=== PATIENT | male | born 1995 | race Asian ===

== ENCOUNTER 2017-04-02 18:58 | Emergency (ER) | payer SELFPAY ==
[2017-04-02 19:06] VITALS: BP 111/70
--- NOTE | 2017-04-02 19:14 | UC ---
Laceration HPI - HPI Summary HPI Summary: 22 y/o male presents to the urgent care c/o laceration to his LF pinky finger s/ p cutting meat with a knife at 1600pm. Pt states bleeding stopped and pain is 2/ 10. He can move his finger. He feels mild numbness at the tip of his pinky finger. Pt denies fever, SOB, cheat pain, N/V/D. Pt states his last Tetanus shot was 2 weeks ago. - History Of Current Complaint Chief Complaint: UCLaceration Stated Complaint: FINGER LAC Time Seen by Provider: 04/02/17 19:11 Hx Obtained From: Patient Laceration Location: Finger - LF #5 phalanx with laceration at its base Mechanism Of Injury: Sharp Trauma Onset/Duration: Sudden Onset, Lasting Hours, Still Present Severity: Moderate Pain Intensity: 2 Pain Scale Used: 0-10 Numeric Aggravating Factors: Other: - touch Related History: Dominant Hand Right - Allergies/Home Medications Allergies/Adverse Reactions: Allergies Allergy/AdvReac Type Severity Reaction Status Date / Time No Known Allergies Allergy Verified 04/02/17 19:05 PMH/Surg Hx/FS Hx/Imm Hx Previously Healthy: Yes - Surgical History Surgical History: None - Family History Known Family History: Positive: None Family History: Pt denies FMHX - Social History Occupation: Student Lives: Alone Alcohol Use: None Substance Use Type: None Smoking Status (MU): Never Smoked Tobacco Review of Systems Constitutional: Negative Skin: Other - Laceration at the base of LF #5th phalanx s/p cut with a knife Eyes: Negative ENT: Negative Respiratory: Negative Cardiovascular: Negative Gastrointestinal: Negative Genitourinary: Negative Motor: Negative Neurovascular: Negative Musculoskeletal: Negative Neurological: Negative Psychological: Negative All Other Systems Reviewed And Are Negative: Yes Physical Exam Triage Information Reviewed: Yes Appearance: Well-Appearing, No Pain Distress, Well-Nourished, Thin Vital Signs: Initial Vital Signs Temp 98.9 F 04/02/17 19:00 Pulse 62 04/02/17 19:00 Resp 16 04/02/17 19:00 BP 111/70 04/02/17 19:00 Pulse Ox 99 04/02/17 19:00 Vital Signs Reviewed: Yes Eye Exam: Normal Eyes: Positive: Conjunctiva Clear - PERRLA ,EOMI ENT Exam: Normal ENT: Positive: Normal ENT inspection, Hearing grossly normal, Pharynx normal, TMs normal Dental Exam: Normal Neck exam: Normal Neck: Positive: Supple, Nontender, No Lymphadenopathy Respiratory Exam: Normal Respiratory: Positive: Chest non-tender, Lungs clear, Normal breath sounds Cardiovascular Exam: Normal Cardiovascular: Positive: RRR, No Murmur, Pulses Normal, Brisk Capillary Refill Abdominal Exam: Normal Abdomen Description: Positive: Nontender, No Organomegaly, Soft. Negative: CVA Tenderness (R), CVA Tenderness (L) Bowel Sounds: Positive: Present Musculoskeletal Exam: Normal Musculoskeletal: Positive: Strength Intact, ROM Intact, No Edema Neurological Exam: Normal Neurological: Positive: Alert Psychological Exam: Normal Skin: Positive: significant lesion(s) - Base of LF #5 phalanx with a irregular superficial laceration, semilunar in shape about 2cm in size. tender to palaption , FROM of phalanx, mild numbness over the tip of phalanx. capillary refill brisk, pulses ans reflexes WNL. Laceration Repair - Laceration Repair 1 Description: Irregular - semilunar shape at the base of the LF #5 phalanx Laceration Size After Repair: Length (cm) - 2cm in size Modified For Repair: No Type Injection: Local Anesthesia Used: 2.0% Lido - 4 ml used Cleansing Completed Via Routine Prep: Yes Irrigation With Pressure Irrigation Device: Yes Closure Material: Sutures - 5 sutures with 5.0 monofiliment Closure Method: Single Layer Suture Of: Skin Suture Type: Nylon Laceration Course/Dx - Course/Dx Course Of Treatment: 22 y/o male presents to the urgent care c/o laceration to his LF pinky finger s/p cutting meat with a knife at 1600pm. Pt states bleeding stopped and pain is 2/10. He can move his finger. He feels mild numbness at the tip of his pinky finger. Pt denies fever, SOB, cheat pain, N/V/D. Pt states his last Tetanus shot was 2 weeks ago. HX obtained. LACERATION PROCEDURE NOTE: . Copious irrigation was done with saline by the nurse and the wound explored. There was no FB or deep structure injury noted. FROM of left #5 phalanx. procedure was explained and consent obtained, Timeout performed. The wound was anesthetized By digital block 2ml of 2% Lido on each side at base of phalanx with good anesthesia. Sterile drape and prep were done. There were 5 sutures with 5.0 nylon type of suture. The length of the wound after closure was 2cm. No debridement done. Wound was covered w/ bacitracin and sterile nonadherent dressing. The Pt tolerated the procedure well without adverse effects. Neurovascular intact and FROM of the #5 phalanx. Rx Keflex PO and Bacitracin topical and Ibuprofen for pain. Pt advised to f/u suture removal in 7 days and if any signs of infection develop to immediately return to the urgent care or PCP for further management and treatment. If nubness persists at tip of phalanx to f/u with DR French for further managment. Pt understood and agreed and left the clinic ambulating A&Ox3. - Differential Dx - Laceration/Wound Differental Diagnoses: Abrasion, Avulsion, Dehiscence, Foreign Body, Laceration , Puncture Wound, Tendon Laceration Provider Diagnoses: 1- Laceration of the left #5 phalanx s/p cut with a knife - Physician Notification/Consults Discussed Patient Care With: Ramandeep Price - DR Price agreed with Pt care and treatment. Discharge - Discharge Plan Condition: Stable Disposition: HOME Prescriptions: Bacitracin OINTMENT* 1 applic TOPICAL TID #1 tube Cephalexin CAP* [Keflex CAP*] 500 mg PO TID #21 cap Ibuprofen TAB* [Motrin TAB* 600 MG] 600 mg PO Q6H PRN #20 tab PRN Reason: Pain Patient Education Materials: Care For Your Stitches (ED), Laceration (ED) Referrals: [facility] [Outside] - 1 Week Irene French MD [Medical Doctor] - 1 Week Additional Instructions: Please take full course of antibiotic to avoid resistance. Keep wound clean and dry and avoid excessive movement w/ your finger. F/u suture removal in 7 days w / your PCP or here at the urgent care. Take Ibuprofen q6-8hrs prn for pain or swelling. If you develop fever or redness around your finger despite the antibiotic please go to the ER immediately or return to the Urgent care. If numbness persists please f/u with orthopedic DR French for further evaluation and treatment.
[2017-04-02] MEDS ORDERED: Lidocaine 2% PF * 5 ML VIAL INJ ONE (19:22)
== END 2017-04-02 20:30 | disposition home or self-care (01) ==
LOC: UCEAST 18:58
DX: S61.217A Laceration without foreign body of left little finger without damage to nail, initial encounter (principal); W26.0XXA Contact with knife, initial encounter; Y93.G1 Activity, food preparation and clean up; Y92.9 Unspecified place or not applicable
CPT/HCPCS: 12001; 99202; G0463